=== PATIENT | female | born 1955 | race African-American/Black ===

== ENCOUNTER 2017-01-21 18:30 | Inpatient (IN) | payer OTHER ==
[~2017-01-21] VITALS: Ht 167.6 cm; Wt 131.1 kg
--- NOTE | ~2017-01-21 | S ---
[facility] Анна [place] [address] SURGICAL PATH RPT PROCEDURE Name: DERRICK NEWTON Room #: 538-P ADM IN M.R.#: [id number] Admission: 01/21/17 Date of : 59 Discharge: Report #: [id number] Path Case #: [id number] PATHOLOGY REPORT COLLECTION DATE: 01/24/2017 RECEIVED DATE: 01/24/2017 SUBMITTING PHYS: Dr. Keenan Farfan OTHER PHYS: Dr. Elton Agosto SPECIMEN(S) RECEIVED: A.Bone marrow, biopsy B.Bone marrow, clot and/or particle prep C.Bone marrow, aspirate smears D.Peripheral smear * * * * * * * * * * * * FINAL DIAGNOSIS: Peripheral smear: - Normocytic normochromic anemia, mild. 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 See comment. - Focal presence of reticuloendothelial iron stores COMMENT: The peripheral smear shows a mild normocytic normochromic anemia. The bone marrow is moderately hypercellular and shows trilineage hematopoiesis and a moderate plasmacytosis comprised of atypical plasma cells showing immunophenotypic evidence of kappa light chain restriction. Monoclonal plasma cells overall comprise approximately 40% of nucleated marrow cells. 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 Will need to correlate with other clinical, laboratory, and radiologic findings for specific classification. Special stain performed: Iron stain on B1, CD138 on A1 and B1 and in situ hybridization with kappa and lambda light chain each on B1. (JPM:mita; 02/01/2017) PATHOLOGIST: Charli Boswell M.D. REPORT ELECTRONICALLY SIGNED BY: Charli Boswell M.D. DATE/TIME: 02/02/2017 09:15 * * * * * * * * * * * * MICROSCOPIC DESCRIPTION: [address] [address] SURGICAL PATH RPT PROCEDURE Name: DERRICK NEWTON Room #: 538-[facility] IN .R.#: [id number] Admission: 01/21/17 Date of : 59 Discharge: Report #: [id number] Path Case #: [id number] Laboratory Data: The CBC results are obtained from [facility] laboratory and are dated 01/23/17. The WBC count is 6.8 K/CMM, and the automated WBC differential reveals 56.4% segmented neutrophils, 29.9% lymphocytes, 10.9% monocytes, 1.9% eosinophils, and 0.9% basophils. The RBC count is 4.22 M/CMM, hemoglobin 11.8 G/DL, hematocrit 35.2%, MCV 83.5 FL, MCH 28.1 PG, MCHC 33.6 G/DL, and the RDW is 15.7%. The platelet count is 158 K/CMM. Peripheral Smear: The peripheral smear is reviewed. The WBC count is normal. Some of the white blood cells appear degenerated. The WBC differential reveals a predominance of segmented neutrophils, with smaller populations of lymphocytes and monocytes and occasional eosinophils noted. Neutrophils do not show dysplastic changes. There is no significant neutrophilic left shift. There are no circulating blasts. There is no leukoerythroblastic reaction. The lymphocyte population consists predominantly of small lymphocytes. There are no obvious circulating plasma cells. Red blood cells appear normochromic. Red blood cells show mild anisocytosis and range from normocytic to mildly microcytic. Red blood cells show no significant poikilocytosis. There does appear to be some red blood cell rouleaux. Platelets are low normal and appear normal in morphology with occasional large platelets noted. Aspirate Smears: Four Holder's-stained and one iron-stained aspirate smears are examined. The smears contain multiple marrow particles, many of which appear cellular for age. There is a marrow plasmacytosis. There are foci of marrow plasmacytosis showing up to 40%-50% plasma cells. Other areas show a smaller proportion of plasma cells. The plasma cells are atypical. These plasma cells are enlarged and possess enlarged eccentric rounded nuclei containing a distinct nucleolus. Occasional binucleated atypical plasma cells are noted. Erythroid maturation appears normoblastic. There are no megaloblastic or overt dysplastic changes. Granulopoiesis qualitatively appears normal. There is no significant left shift or dysplastic changes. Megakaryocytes appear adequate in number. The megakaryocytes are of variable ploidy. Some of the megakaryocytes are small and have hypolobated nuclei. There is no increase of lymphocytes. There are no cells foreign to the marrow. The iron stain of the clot section shows absent iron stores. There are no ringed sideroblasts. Bone Marrow Biopsy and Clot Section: Sections of the bone marrow biopsy reveal a segment of bone marrow showing extensive aspiration artifact. Preserved areas of the biopsy are approximately 60%-70% cellular. Sections of the marrow clot reveal multiple marrow particles, the majority of which also are on the order of 60%-70% cellular. The marrow particles contain variable numbers of plasma cells. The plasma cells are atypical. These plasma cells are enlarged and possess enlarged eccentric nuclei [address] [address] SURGICAL PATH RPT PROCEDURE Name: DERRICK NEWTON Room #: 538-P ADM IN M.R.#: [id number] Admission: 01/21/17 Date of : 59 Discharge: Report #: [id number] Path Case #: [id number] containing prominent nucleoli. The marrow particles show trilineage hematopoiesis with hematopoietic precursors imately admixed with the atypical plasma cells. Granulocytic precursors are present in varying stages of maturation. There is no apparent increase of blasts. Megakaryocytes appear adequate in number and are of variable ploidy with presence of some small megakaryocytes having hypolobate nuclei. There are no abnormal lymphoid aggregates, granulomas, or cells foreign to the marrow. Immunoperoxidase stains for CD138 and in situ hybridization for kappa lambda light chain are obtained and yield the following results: CD138 (A1) Plasma cells positive; plasma cells comprise between 30% and 50% of nucleated marrow cells. CD138 (B1) Plasma cells positive; plasma cells comprise between 30% and 50% of nucleated marrow cells. [place] ROSARIO (B1) Plasma cells positive and show kappa light chain restriction. Lambda ROSARIO (B1) Only few scattered plasma cells positive. The iron stain of the clot section shows focal reticuloendothelial iron stores. No ringed sideroblasts are identified. Special Studies: Bone marrow submitted for marker studies by flow cytometry has a viability of 97.3%. Granulocytes comprise 73.9% of total cells. Monocytes comprise 3.8% of total cells. CD45 dim, CD34 positive blasts comprise 0.9% of total cells. Lymphocytes comprise 14.5% of total cells. T-cells comprise 52% of lymphocytes. The CD4:CD8 ratio is 2.7. NK-cells comprise 13% of lymphocytes. B-cells comprise 26% of lymphocytes and are polyclonal. Plasma cells comprise 1.8% of total cells and are CD38, CD138, and CD56 positive and show kappa light chain restriction. (JPM:; 01/31/2017) GROSS PATHOLOGY: A. Received in formalin labeled "Derrick Newton, BM biopsy," is a single needle core of perez bone, measuring 1.7 cm in length and 0.2 cm in diameter. The specimen is submitted entirely in cassette A1, following decalcification. B. Received in formalin labeled "Derrick Newton, clot (BM aspirate)," is blood coagulum, measuring 2.4 x 0.9 x 0.1 cm in aggregate dimensions. The specimen is submitted entirely in cassette B1. (CECIL; 01/25/2017) CLINICAL HISTORY: Rule out myeloma INITIAL CPT CODE(S): A; 67815, 70174, 80136 B; 29789, 30348, 44742, 16824, 58808, 47136, 81106 C; [address]39, [address] [address] SURGICAL PATH RPT PROCEDURE Name: DERRICK NEWTON Bridget Room #: 538-P ADM IN M.R.#: [id number] Admission: 01/21/17 Date of : 59 Discharge: Report #: [id number] Path Case #: [id number] D; [place] Professional services performed by [facility] at [facility], [address] [place] [address]. Technical services performed by [facility] at [address] [place] [address], [address], [place] [address]. [facility] [address] [place] [address] PHONE: [phone] DIRECTOR: Jorden Vizcaino M.D. * * * END OF REPORT * * *
[2017-01-21] MEDS ORDERED: IBUPROFEN 800800 M1 PO (23:20)
[2017-01-21] MEDS ORDERED: ALLOPURINOL 10100 M1 PO (23:21)
[2017-01-21] MEDS ORDERED: LASIX 20 MG TAB20 MG PO (23:22)
[2017-01-21] MEDS ORDERED: COLCHICINE0.6 MG PO (23:23)
[2017-01-21] MEDS ORDERED: TRAMADOL 50 MG50 MG PO (23:24)
[2017-01-21] MEDS ORDERED: METOLAZONE 2.52.5 M1 PO (23:24)
[2017-01-21] MEDS ORDERED: KLOR-CON M2020 MEQ PO (23:25)
[2017-01-21] MEDS ORDERED: LOPRESSOR50 PO (23:26)
[2017-01-22 03:55] VITALS: BP 141/54
[2017-01-22 04:35] LABS: HEMATOCRIT 37.5 % (37.0-47.0); HEMOGLOBIN 12.7 gm/dL (12.0-15.0); MCH 28.3 pg (26.0-34.0); MCHC 33.7 g/dL (28.0-37.0); MCV 83.8 fL (80.0-100.0); RBC 4.48 mil/uL (4.20-5.00); RDW 15.7 % (10.5-14.5); WBC 7.2 thou/uL (4.0-11.0)
[2017-01-22 04:56] LABS: CALCIUM 8.7 mg/dL (8.5-10.1); CREATININE 2.3 mg/dL (0.6-1.0)
[2017-01-22 04:59] LABS: POTASSIUM 2.9 mmol/L (3.5-5.1)
[2017-01-22 08:00] VITALS: BP 128/56
[2017-01-22 17:40] VITALS: BP 153/71
[2017-01-22 21:09] LABS: ALBUMIN 2.5 g/dL (3.4-5.0); CALCIUM 8.6 mg/dL (8.5-10.1); CREATININE 1.8 mg/dL (0.6-1.0); POTASSIUM 2.7 mmol/L (3.5-5.1); TOTAL BILIRUBIN 0.2 mg/dL (<0.1-1.0); TOTAL PROTEIN 8.7 g/dL (6.4-8.2)
[2017-01-23 04:00] VITALS: BP 146/56
[2017-01-23 06:31] LABS: ABSOLUTE NEUTROPHILS 3.8 thou/uL (1.4-8.2); BASOPHILS 0.9 % (0.0-2.0); EOSINOPHILS 1.9 % (0.0-3.0); HEMATOCRIT 35.2 % (37.0-47.0); HEMOGLOBIN 11.8 gm/dL (12.0-15.0); LYMPHOCYTES 29.9 % (24.0-44.0); MCH 28.1 pg (26.0-34.0); MCHC 33.6 g/dL (28.0-37.0); MCV 83.5 fL (80.0-100.0); MONOCYTES 10.9 % (1.0-8.0); PLATELET COUNT 158 thou/uL (150-400); POLYS 56.4 % (36.0-66.0); RBC 4.22 mil/uL (4.20-5.00); RDW 15.7 % (10.5-14.5); WBC 6.8 thou/uL (4.0-11.0)
[2017-01-23 06:34] LABS: MANUAL DIFF NO
[2017-01-23 06:59] LABS: CALCIUM 8.9 mg/dL (8.5-10.1); CREATININE 1.6 mg/dL (0.6-1.0)
[2017-01-23 07:01] LABS: POTASSIUM 2.5 mmol/L (3.5-5.1)
[2017-01-23 08:40] VITALS: BP 144/75
[2017-01-23 15:37] VITALS: BP 147/87
[2017-01-23 20:00] VITALS: BP 153/69
[2017-01-24 01:05] LABS: IgG 456 mg/dL (700-1600)
[2017-01-24 02:07] LABS: IgA 3108 mg/dL (87-352); IgM 17 mg/dL (26-217)
[2017-01-24 04:00] VITALS: BP 136/54
[2017-01-24 05:49] LABS: CREATININE 1.1 mg/dL (0.6-1.0)
[2017-01-24 08:06] VITALS: BP 136/54
[2017-01-24 08:30] VITALS: BP 143/66
[2017-01-24 11:08] LABS: INR 1.1; PROTIME 11.3 Seconds (9.3-11.4)
[2017-01-24 12:51] VITALS: BP 141/57
[2017-01-24 16:08] LABS: KAPPA FREE LIGHT CHAINS 1624.6 mg/L (3.3-19.4); KAPPA/LAMBDA RATIO 117.72 (0.26-1.65); LAMBDA FREE LIGHT CHAINS 13.8 mg/L (5.7-26.3)
[2017-01-24 19:24] VITALS: BP 134/63
[2017-01-25 04:54] LABS: ALBUMIN 2.2 g/dL (3.4-5.0); MAGNESIUM 1.1 mg/dL (1.8-2.4); POTASSIUM 3.3 mmol/L (3.5-5.1); TOTAL BILIRUBIN 0.4 mg/dL (<0.1-1.0); TOTAL PROTEIN 7.8 g/dL (6.4-8.2)
[2017-01-25 07:20] VITALS: BP 155/64
[2017-01-25 08:13] LABS: FREE T3 4.8 pg/mL (2.0-4.4)
[2017-01-25 14:00] VITALS: BP 153/51
[2017-01-25 20:00] VITALS: BP 173/64
[2017-01-26 04:00] VITALS: BP 133/55
[2017-01-26 05:18] LABS: CALCIUM 8.6 mg/dL (8.5-10.1); CREATININE 0.9 mg/dL (0.6-1.0); MAGNESIUM 1.2 mg/dL (1.8-2.4); POTASSIUM 3.7 mmol/L (3.5-5.1)
[2017-01-26 07:30] VITALS: BP 133/50
[2017-01-26 15:20] VITALS: BP 124/48
[2017-01-26 17:09] LABS: A/G RATIO 0.6 (0.7-1.7); ALBUMIN 3.2 g/dL (2.9-4.4); ALPHA 1 0.2 g/dL (0.0-0.4); ALPHA 2 0.6 g/dL (0.4-1.0); BETA 3.7 g/dL (0.7-1.3); M-SPIKE 2.6 g/dL (Not Observed)
[2017-01-26 19:31] VITALS: BP 117/55
[2017-01-27 03:45] VITALS: BP 129/55
[2017-01-27 08:50] VITALS: BP 129/46
[2017-01-27 16:10] VITALS: BP 146/81
[2017-01-27 19:04] VITALS: BP 104/29
[2017-01-27 19:08] VITALS: BP 142/44
[2017-01-28 04:04] VITALS: BP 123/59
[2017-01-28 07:51] VITALS: BP 152/72
[2017-01-28 11:08] LABS: IFEU COMMENT Note: (())
[2017-01-28 15:49] VITALS: BP 148/60
[2017-01-28 19:18] VITALS: BP 147/58
[2017-01-28] MEDS ORDERED: LASIX 20 MG TAB20 MG PO (21:40)
[2017-01-29 03:44] VITALS: BP 118/60
[2017-01-29 07:20] VITALS: BP 143/74
[2017-01-29 14:20] LABS: HEMOGLOBIN 11.2 gm/dL (12.0-15.0); MCH 28.4 pg (26.0-34.0); RBC 3.95 mil/uL (4.20-5.00); RDW 15.8 % (10.5-14.5); WBC 8.2 thou/uL (4.0-11.0)
[2017-01-29 14:31] LABS: CALCIUM 8.9 mg/dL (8.5-10.1); CREATININE 1.1 mg/dL (0.6-1.0); MAGNESIUM 1.2 mg/dL (1.8-2.4); POTASSIUM 3.8 mmol/L (3.5-5.1)
[2017-01-29 15:30] VITALS: BP 135/53
[2017-01-29 20:00] VITALS: BP 120/91
[2017-01-30 07:10] VITALS: BP 148/56
[2017-01-30 15:30] VITALS: BP 114/49
[2017-01-30 22:24] VITALS: BP 156/58
[2017-01-31 07:28] VITALS: BP 161/78
[2017-01-31 20:00] VITALS: BP 138/59
[2017-02-01 04:00] VITALS: BP 134/62
[2017-02-01 08:00] VITALS: BP 174/63
[2017-02-01 15:30] VITALS: BP 139/55
[2017-02-01 20:00] VITALS: BP 132/49
[2017-02-02 08:11] VITALS: BP 151/63
[2017-02-02 15:18] VITALS: BP 122/85
[2017-02-02 19:25] VITALS: BP 146/51
[2017-02-03 04:18] VITALS: BP 137/53
[2017-02-03 06:32] LABS: HEMATOCRIT 33.4 % (37.0-47.0); HEMOGLOBIN 11.3 gm/dL (12.0-15.0); MCH 28.7 pg (26.0-34.0); MCHC 33.7 g/dL (28.0-37.0); MCV 85.3 fL (80.0-100.0); RBC 3.92 mil/uL (4.20-5.00); RDW 15.6 % (10.5-14.5)
[2017-02-03 07:09] LABS: CALCIUM 9.3 mg/dL (8.5-10.1); CREATININE 0.9 mg/dL (0.6-1.0); POTASSIUM 4.2 mmol/L (3.5-5.1)
[2017-02-03 08:00] VITALS: BP 169/70
[2017-02-03] MEDS ORDERED: HYDROCODON-ACE1 EAC7 PO (13:55)
[2017-02-03] MEDS ORDERED: TYLENOL325 MG PO (13:56)
[2017-02-03] MEDS ORDERED: PROTONIX40 M1 PO (13:56)
[2017-02-03] MEDS ORDERED: DEXAMETHASONE 44 M1 PO (13:57)
[2017-02-03 15:56] VITALS: BP 146/63
== END 2017-02-03 17:49 | DRG 840 ==
LOC: 5S 18:30
PROVIDERS: Hospitalist; Internal Medicine Endocrinology, Diabetes & Metabolism; Internal Medicine Hematology & Oncology; Nurse Practitioner; Nurse Practitioner Family
PROC: 07DR3ZX Extraction of Iliac Bone Marrow, Percutaneous Approach, Diagnostic (ICD-10-PCS; principal; 2017-01-24)
DX: C90.00 Multiple myeloma not having achieved remission (principal); E43 Unspecified severe protein-calorie malnutrition; N17.9 Acute kidney failure, unspecified; M84.461A Pathological fracture, right tibia, initial encounter for fracture; Z68.42 Body mass index [BMI] 45.0-49.9, adult; E87.6 Hypokalemia; E83.42 Hypomagnesemia; E04.9 Nontoxic goiter, unspecified; M10.9 Gout, unspecified; M19.90 Unspecified osteoarthritis, unspecified site; F17.210 Nicotine dependence, cigarettes, uncomplicated; I12.9 Hypertensive chronic kidney disease with stage 1 through stage 4 chronic kidney disease, or unspecified chronic kidney disease; N18.9 Chronic kidney disease, unspecified; E07.9 Disorder of thyroid, unspecified; K59.00 Constipation, unspecified; Z60.2 Problems related to living alone; E66.9 Obesity, unspecified; Z86.718 Personal history of other venous thrombosis and embolism; Z79.899 Other long term (current) drug therapy; Z83.3 Family history of diabetes mellitus
CPT/HCPCS: 10785

== ENCOUNTER 2020-03-28 16:58 | Inpatient (IN) | payer OTHER ==
[~2020-03-28] VITALS: Ht 162.6 cm; Wt 145.1 kg
[~2020-03-28 16:58] MED LIST: ACYCLOVIR 800800 MG PO; ALLOPURINOL 10100 M1 PO; ASPIRIN EC325 M1 PO; COLACE100 MG PO; COLCHICINE0.6 MG PO; DEXAMETHASONE 44 M1 PO; GLIPIZIDE 10 MG10 MG PO; HYDROCODON-ACE1 EAC7 PO; IBUPROFEN 800800 M1 PO; KLOR-CON M2020 MEQ PO; LASIX 20 MG TAB20 MG PO; LASIX 40 MG TAB40 MG PO; LOPRESSOR50 PO; METOLAZONE 2.52.5 M1 PO; MUCINEX600 MG PO; NEURONTIN 300M300 M2 PO; POTASSIUM20 PO; PROTONIX40 M1 PO; SPIRONOLACTONE50 MG PO; TRAMADOL 50 MG50 MG PO; TYLENOL325 MG PO; ZAROXOLYN 5MG TA5 MG PO
[2020-03-28 17:35] VITALS: BP 112/30
[2020-03-28 18:50] LABS: HEMOGLOBIN 6.5 gm/dL (12.0-15.0); RDW 19.3 % (10.5-14.5)
[2020-03-28 18:52] LABS: MCH 39.2 pg (26.0-34.0); MCHC 33.7 g/dL (28.0-37.0); MCV 116.1 fL (80.0-100.0); RBC 1.66 mil/uL (4.20-5.00); WBC 2.6 thou/uL (4.0-11.0)
[2020-03-28 18:58] LABS: HEMATOCRIT 19.2 % (37.0-47.0)
[2020-03-28 19:00] LABS: CALCIUM 8.4 mg/dL (8.5-10.1); CREATININE 1.9 mg/dL (0.6-1.0); POTASSIUM 4.9 mmol/L (3.5-5.1)
[2020-03-28 19:06] LABS: ALBUMIN 2.8 g/dL (3.4-5.0); TOTAL BILIRUBIN 0.2 mg/dL (0.2-1.0); TOTAL PROTEIN 6.7 g/dL (6.4-8.2)
[2020-03-28 19:28] LABS: ABSOLUTE NEUTROPHILS 1.7 thou/uL (1.4-8.2); NUCLEATED RBCS 1 /100WBC
[2020-03-28 19:29] LABS: ANISOCYTOSIS 2+; MACROCYTES 3+; PLATELET COUNT 18 thou/uL (150-400); PLATELET ESTIMATE MARKEDLY DECREASED; POIKILOCYTOSIS 1+
[2020-03-28 19:34] VITALS: BP 101/42; BP 116/42; BP 122/39; BP 132/44
[2020-03-28 20:35] VITALS: BP 119/41
[2020-03-28 21:34] VITALS: BP 121/43
[2020-03-28 22:31] VITALS: BP 100/47
[2020-03-29 01:01] VITALS: BP 114/44
[2020-03-29 01:49] VITALS: BP 113/40; BP 119/42
--- NOTE | 2020-03-29 02:13 | NUR ---
#1 PRBC UNIT COMPLETED AT 0130. 100% OF BLOOD INFUSED. B/P 114/44, HR 90, O2SAT 98% ROOM AIR, TEMPERATURE: 98.1. TOLERATED BLOOD WITHOUT INCREASED SHORTNESS OF AIR.
--- NOTE | 2020-03-29 02:15 | NUR ---
ADMISSION NOTE; PT HAS A HISTORY OF MULTIPLE MYLELOMA 2017. sHE STATED THAT SHE HAS NEEDED TO BE NEAR THE [facility] FOR TREATMENT IN [place]. SHE IS CURRENTLY LIVING WITH HER 88 YEAR OLD MOTHER. PRBC'S INFUSING ORDERED AT THIS TIME. COMPLAINS OF SOME PAIN TO HER SHOULDER AND LEG. HYDROCODONE IS EFFECTIVE FOR PAIN CONTROL. RESTING QUIETLY AT THIS TIME. CAREPLAN STARTED. INSTRUCTED TO CALL FOR ASSIST OUT OF BED, BED ALARM SET
[2020-03-29 04:17] VITALS: BP 113/40
[2020-03-29 07:22] VITALS: BP 111/39
[2020-03-29 07:35] LABS: HEMOGLOBIN 7.8 gm/dL (12.0-15.0); WBC 2.2 thou/uL (4.0-11.0)
[2020-03-29 07:37] LABS: HEMATOCRIT 22.9 % (37.0-47.0); MCH 36.8 pg (26.0-34.0); MCHC 34.1 g/dL (28.0-37.0); RBC 2.12 mil/uL (4.20-5.00); RDW 23.6 % (10.5-14.5)
[2020-03-29 07:43] LABS: CALCIUM 8.5 mg/dL (8.5-10.1); CREATININE 1.7 mg/dL (0.6-1.0); POTASSIUM 4.3 mmol/L (3.5-5.1)
[2020-03-29 15:45] VITALS: BP 108/37
--- NOTE | 2020-03-29 19:34 | NUR ---
PATIENT PREFERED TO STAY IN BED THROUGH THE DAY. ASKED IF SHE WANTED TO SIT ON THE CHAIR AND SHE SAID SHE PREFERS TO BE IN BED. DOES NOT SEEM TO BE PAIN AT THIS TIME. RESPIRATIONS ARE NON LABORED. WILL CONT WITH PLAN OF CARE.
[2020-03-29 19:42] VITALS: BP 105/35
--- NOTE | 2020-03-30 03:51 | NUR ---
PT STANDING AT BEDSIDE WHILE CHANGING LINENS AND IS TOLERATING FAIR. TRAMADOL PROVIDING PARTIAL PAIN RELIEF. RESTING COMFORTABLY. NO NEEDS VOICED. CALL LIGHT WITHIN REACH. FREQUENT OBSERVATION.
[2020-03-30 04:04] VITALS: BP 134/44
[2020-03-30 06:07] LABS: HEMOGLOBIN 8.6 gm/dL (12.0-15.0); WBC 3.3 thou/uL (4.0-11.0)
[2020-03-30 06:09] LABS: HEMATOCRIT 24.9 % (37.0-47.0); MCH 37.4 pg (26.0-34.0); MCHC 34.6 g/dL (28.0-37.0); RBC 2.31 mil/uL (4.20-5.00); RDW 23.2 % (10.5-14.5)
[2020-03-30 06:22] LABS: CALCIUM 9.2 mg/dL (8.5-10.1); CREATININE 1.6 mg/dL (0.6-1.0); POTASSIUM 4.5 mmol/L (3.5-5.1)
[2020-03-30] MEDS ORDERED: PROTONIX40 M2 PO (07:51)
[2020-03-30 07:53] VITALS: BP 149/61
--- NOTE | 2020-03-30 10:59 | NUR ---
ASSUMED PATIENT CARE THIS AM AT APPROXIMATELY 0700. PATIENT AWAKE ALERT ORIENTED. IN NO ACUTE DISTRESS. RESPIRATIONS ARE EVEN/UNLABORED, STATES THAT HER SWELLING IN HER LEGS LOOKS IMPROVED. REVIEWED MEDICATIONS WITH PATIENT AND STATES SHE TAKES A PROTONIX PO IN THE MORNINGS BEFORE BREAKFAST. ORDERS OBTAINED FROM DR. ROSS TO CONTINUE. TOLERATED THE REST OF HER MEDICATIONS WELL. BLOOD GLUCOSE STABLE. SEEN BY DR. ROSS AND STATES OK FOR PATIENT TO DISCHARGE TODAY WITH HER HOME HEALTH. PATIENT ABLE TO GIVE HERSELF BEDBATH WITH ONLY SET-UP ASSISTANCE. IN BEDSIDE CHAIR FOR MOST OF THIS SHIFT. TOLERATING MEALS.
[2020-03-30 11:02] VITALS: BP 149/61
== END 2020-03-30 13:19 | disposition home health service (06) | DRG 811 ==
LOC: ER 16:58 → EROBS 19:19 → 3W 21:37
PROVIDERS: Physician Assistant; ADMIT Hospitalist; ATTEND Hospitalist
PROC: 30233N1 Transfusion of Nonautologous Red Blood Cells into Peripheral Vein, Percutaneous Approach (ICD-10-PCS; principal; 2020-03-28)
DX: D64.9 Anemia, unspecified (principal); N17.0 Acute kidney failure with tubular necrosis; C90.00 Multiple myeloma not having achieved remission; I10 Essential (primary) hypertension; M19.90 Unspecified osteoarthritis, unspecified site; M10.9 Gout, unspecified; D61.818 Other pancytopenia; F17.210 Nicotine dependence, cigarettes, uncomplicated; D69.6 Thrombocytopenia, unspecified; R60.0 Localized edema; E11.42 Type 2 diabetes mellitus with diabetic polyneuropathy; Z86.718 Personal history of other venous thrombosis and embolism; Z79.84 Long term (current) use of oral hypoglycemic drugs; Z79.82 Long term (current) use of aspirin; Z79.899 Other long term (current) drug therapy; Z92.21 Personal history of antineoplastic chemotherapy; Z20.828 Contact with and (suspected) exposure to other viral communicable diseases
CPT/HCPCS: 10879